=== PATIENT | male | born 2005 | race Two or more races ===

== ENCOUNTER 2023-10-18 17:41 | Outpatient (CLI) | payer OTHER | END 2023-10-18 23:59 | disposition critical access hospital (66) | LOC: EMS 17:41 | DX: M54.6 Pain in thoracic spine (principal); R07.9 Chest pain, unspecified; M54.2 Cervicalgia; M79.602 Pain in left arm; M79.601 Pain in right arm; X50.0XXA Overexertion from strenuous movement or load, initial encounter; Y93.89 Activity, other specified; Y92.009 Unspecified place in unspecified non-institutional (private) residence as the place of occurrence of the external cause | CPT/HCPCS: A0425; A0429 ==